=== PATIENT | male | born 1945 | race Two or more races ===

== ENCOUNTER 2017-07-23 20:39 | Emergency (ER) | payer MEDICARE, MEDICAID ==
[~2017-07-23] VITALS: Ht 182.9 cm; Wt 77.0 kg
[2017-07-23 21:10] LABS: BASOPHILS % (AUTO) 0.9 % (0.0-2.0); EOSINOPHILS % (AUTO) 3.3 % (1.0-6.0); HEMATOCRIT 39.4 % (41-53); HEMOGLOBIN 12.7 g/dL (13.5-17.5); LYMPHOCYTES # (AUTO) 1.1 K/uL (1.0-4.8); LYMPHOCYTES % (AUTO) 9.7 % (22.0-44.0); MEAN CORPUSCULAR HEMOGLOBIN 25.3 pg (26.0-34.0); MEAN CORPUSCULAR HGB CONC 32.3 G/dL (31.0-37.0); MEAN CORPUSCULAR VOLUME 78 fL (80-100); MONOCYTES # (AUTO) 0.9 K/uL (0.1-1.0); MONOCYTES % (AUTO) 7.4 % (2.0-9.0); NEUTROPHILS # (AUTO) 9.2 K/uL (1.8-7.7); NEUTROPHILS % (AUTO) 78.7 % (40.0-70.0); PLATELET COUNT (AUTO) 316 K/uL (150-450); RED BLOOD CELL COUNT(AUTO) 5.03 MIL/uL (4.50-5.90); RED CELL DISTRIBUTION WIDTH 14.6 % (11.5-14.5)
[2017-07-23 21:37] LABS: ALBUMIN 2.7 g/dL (3.4-5.0); BILIRUBIN,TOTAL 0.3 mg/dL (0.1-1.0); CREATININE 1.32 mg/dL (0.60-1.30); POTASSIUM 4.7 mmol/L (3.5-5.1); TOTAL PROTEIN, SERUM 7.4 g/dL (6.4-8.2)
[2017-07-23] MEDS ORDERED: SODIUM CHLORIDE 0.9% 1,000 ML IV ONE (22:30)
[2017-07-23] MEDS ORDERED: INSULIN REGULAR, HUMAN 100 UNITS/ML IVP ONE (22:30)
[2017-07-23] MEDS ORDERED: PROPARACAINE/FLUORESCEIN SOD 0.5-0.25% 0.5 ML OPHTHALMIC SOLUTION ONE (22:34)
[2017-07-23] MEDS ORDERED: PROPARACAINE/FLUORESCEIN SOD 0.5-0.25% 0.5 ML OPHTHALMIC SOLUTION OU ONE (22:45)
[2017-07-23 23:13] LABS: APPEARANCE,URINE CLEAR (CLEAR); BILIRUBIN,URINE NEGATIVE (NEGATIVE); GLUCOSE, URINE (UA) >=1000 mg/dL (NEGATIVE); KETONES,URINE NEGATIVE (NEGATIVE); LEUKOCYTE ESTERASE ,URINE NEGATIVE (NEGATIVE); NITRATE,URINE NEGATIVE (NEGATIVE); OCCULT BLOOD,URINE NEGATIVE (NEGATIVE); PH,URINE 5.5 (5.0-8.0); PROTEIN,URINE SEE CONFIRM (NEGATIVE)
[2017-07-23] MEDS ORDERED: LOSA25TA21 PO (23:13)
[2017-07-23] MEDS ORDERED: LINA5TAB PO (23:13)
[2017-07-23] MEDS ORDERED: SITA100 PO (23:13)
[2017-07-23] MEDS ORDERED: METF500T4 PO (23:13)
[2017-07-23] MEDS ORDERED: ASPI-1182 PO (23:13)
[2017-07-23] MEDS ORDERED: ATOR10TA84 PO (23:13)
[2017-07-23] MEDS ORDERED: CARV6 PO (23:13)
[2017-07-23] MEDS ORDERED: AMOX500C2 PO (23:13)
[2017-07-23] MEDS ORDERED: CYAN500 PO (23:13)
[2017-07-23] MEDS ORDERED: CLOP75 PO (23:13)
[2017-07-23 23:58] LABS: GLUCOSE,POINT OF CARE 226 MG/DL (70-110)
[2017-07-24 00:28] LABS: SULFOSALICYLIC ACID,URINE 1+ (Negative)
[2017-07-24 00:29] LABS: BACTERIA,URINE None Seen /HPF (None Seen); RBC,URINE 0-2 /HPF (0-2); WBC,URINE 0-2 /HPF (0-5)
[2017-07-24 00:45] VITALS: BP 130/73
== END 2017-07-24 01:10 | disposition home or self-care (01) ==
LOC: EMS 20:40
DX: E11.65 Type 2 diabetes mellitus with hyperglycemia (principal); B02.9 Zoster without complications; F43.20 Adjustment disorder, unspecified
CPT/HCPCS: 36415; 71045; 80053; 81001; 82009; 82962; 84484; 85025; 93005; 96361; 96374; 99285; J1815; J7030